=== PATIENT | female | born 1935 | race Caucasian/White ===

== ENCOUNTER 2017-06-26 11:55 | Observation (INO) | payer MEDICARE ==
[2017-06-26] VITALS (7 sets, daily range): BP systolic 152–214; BP diastolic 74–101; PULSE 77–89; RESP 16–18; TEMP 97.3–98.6; O2SAT 97–99
[~2017-06-26] VITALS: Ht 165.1 cm; Wt 77.8 kg
[~2017-06-26 11:55] MED LIST: HYDR-3580 PO; METO50 PO; [UNRECOGNIZED DRUG - OTHER]
--- NOTE | 2017-06-26 12:08 | PD ---
HPI Chief Complaint: right arm weakness Time Seen by Provider: 12:04 Travel History International Travel<30 days: No Contact w/Intl Traveler<30days: No History of Present Illness HPI 81-year-old female patient presents to the ER today, states that she was feeling fine when she went to sleep at 9 PM last night, woke up at 9 AM and noticed that she was having trouble picking up her right arm. She denies any trouble walking, talking, or any other symptoms. She denies any previous episodes of this. Modifying Factors: None Associated Signs & Symptoms: Right arm weakness Risk Factors: None PFSH Past Medical History Depression: Yes Cardiac Catheterization: No Cardiovascular Problems: Yes High Cholesterol: Yes Diabetes: No Diminished Hearing: No Hypertension: Yes Myocardial Infarction: No Past Surgical History Appendectomy: Yes Coronary Artery Bypass Graft: No Tonsillectomy: Yes Social History Alcohol Use: Yes (OCCASIONALLY WINE) Tobacco Use: No Substance Use: No Allergies-Medications (Allergen,Severity, Reaction): Coded Allergies: Sulfa (Sulfonamide Antibiotics) (Unverified Allergy, Severe, Nausea/ Vomiting, 06/26/17) Reported Meds & Prescriptions Reported Meds & Active Scripts Active Lortab 7.5/325 Tab (Hydrocodone-Acetaminophen) 7.5 Mg/325 Mg Tab 1 Tab PO Q4HPRN Reported [[place]] Lopressor 50 Mg Tab (Metoprolol Tartrate) 50 Mg Tab 0 PO DAILY Review of Systems Except as stated in HPI: all other systems reviewed are Neg Physical Exam Narrative GENERAL: Well-developed elderly white female patient currently in mild distress. Awake and oriented 3. SKIN: Focused skin assessment warm/dry. HEAD: Atraumatic. Normocephalic. EYES: Pupils equal and round. No scleral icterus. No injection or drainage. ENT: No nasal bleeding or discharge. Mucous membranes pink and moist. NECK: Trachea midline. No JVD. Supple. CARDIOVASCULAR: Regular rate and rhythm. No murmur appreciated. RESPIRATORY: No accessory muscle use. Clear to auscultation. Breath sounds equal bilaterally. GASTROINTESTINAL: Abdomen soft, non-tender, nondistended. Hepatic and splenic margins not palpable. MUSCULOSKELETAL: No obvious deformities. No clubbing. No cyanosis. No edema. NEUROLOGICAL: Awake and alert. No obvious cranial nerve deficits. There is notable right arm weakness and mild right pronator drift. Normal speech. PSYCHIATRIC: Appropriate mood and affect; insight and judgment normal. Data Data Last Documented VS Vital Signs Date Time Temp Pulse Resp B/P (MAP) Pulse Ox O2 Delivery O2 Flow Rate FiO2 06/26/17 12:00 98.6 85 16 187/88 (121) 97 06/26/17 12:00 Room Air Orders Orders Electrocardiogram (06/26/17 12:04) Prothrombin Time / Inr (Pt) (06/26/17 12:04) Act Partial Throm Time (Ptt) (06/26/17 12:04) Complete Blood Count With Diff (06/26/17 12:04) Comprehensive Metabolic Panel (06/26/17 12:04) Ct Brain W/O Iv Contrast(Rout) (06/26/17 12:04) Chest, Single Ap (06/26/17 12:04) Ecg Monitoring (06/26/17 12:04) Iv Access Insert/Monitor (06/26/17 12:04) Oximetry (06/26/17 12:04) Sodium Chloride 0.9% Flush (Ns Flush) (06/26/17 12:15) Aspirin (Aspirin) (06/26/17 13:15) Ed Discharge Order (06/26/17 13:10) Labs Laboratory Tests Test 06/26/17 12:10 White Blood Count 5.0 TH/MM3 Red Blood Count 4.91 MIL/MM3 Hemoglobin 14.0 GM/DL Hematocrit 42.2 % Mean Corpuscular Volume 85.9 FL Mean Corpuscular Hemoglobin 28.4 PG Mean Corpuscular Hemoglobin Concent 33.1 % Red Cell Distribution Width 12.3 % Platelet Count 156 TH/MM3 Mean Platelet Volume 9.8 FL Neutrophils (%) (Auto) 70.9 % Lymphocytes (%) (Auto) 17.3 % Monocytes (%) (Auto) 6.9 % Eosinophils (%) (Auto) 4.0 % Basophils (%) (Auto) 0.9 % Neutrophils # (Auto) 3.6 TH/MM3 Lymphocytes # (Auto) 0.9 TH/MM3 Monocytes # (Auto) 0.3 TH/MM3 Eosinophils # (Auto) 0.2 TH/MM3 Basophils # (Auto) 0.0 TH/MM3 CBC Comment DIFF FINAL Differential Comment Prothrombin Time 10.2 SEC Prothromb Time International Ratio 1.0 RATIO Activated Partial Thromboplast Time 24.5 SEC Blood Urea Nitrogen 20 MG/DL Creatinine 0.94 MG/DL Random Glucose 129 MG/DL Total Protein 7.4 GM/DL Albumin 3.8 GM/DL Calcium Level 8.8 MG/DL Alkaline Phosphatase 115 U/L Aspartate Amino Transf (AST/SGOT) 23 U/L Alanine Aminotransferase (ALT/SGPT) 36 U/L Total Bilirubin 0.8 MG/DL Sodium Level 141 MEQ/L Potassium Level 3.9 MEQ/L Chloride Level 107 MEQ/L Carbon Dioxide Level 27.8 MEQ/L Anion Gap 6 MEQ/L Estimat Glomerular Filtration Rate 57 ML/MIN MDM Medical Decision Making Medical Screen Exam Complete: Yes Emergency Medical Condition: Yes Medical Record Reviewed: Yes Interpretation(s) EKG shows NSR, no ST elevation or depression, and no arrhythmias. No significant T-wave inversions. Last [address] 06/26/17 1204 Signed Impressions: Service Date/Time: Monday, June 26, 2017 12:30 - CONCLUSION: 1. Aging brain with generalized atrophy and chronic white matter changes. 2. No evidence of acute infarct, hemorrhage, mass or edema. Rusty Mcintyre MD Chest X-Ray 06/26/17 1204 Signed Impressions: Service Date/Time: Monday, June 26, 2017 12:18 - CONCLUSION: No acute intrathoracic disease. Anthony Guallpa MD Laboratory Tests Test 06/26/17 12:10 Neutrophils (%) (Auto) 70.9 % (16.0-70.0) Lymphocytes # (Auto) 0.9 TH/MM3 (1.0-4.8) Blood Urea Nitrogen 20 MG/DL (7-18) Random Glucose 129 MG/DL (74-106) Estimat Glomerular Filtration Rate 57 ML/MIN (>89) Differential Diagnosis Right arm weakness: CVA versus radiculopathy versus ICH versus metabolic issues Narrative Course Initial NIH stroke scale is 1. CAT scan did not show any signs of acute intracranial processes. Her lab work was otherwise unremarkable. She was given an aspirin in the ER. At this point, I would recommend that she be admitted for further treatment. However, after I discussed the findings with the patient and have talked her about the fact that I think she had a stroke, she states that she does not want to stay and does not want to be evaluated for stroke in the hospital. I have talked her regarding the fact that we did not know what is causing the symptoms and if this is a stroke, she could end up having a larger expanding stroke or a more massive stroke or other acute morbidity from it. Patient states understanding and still does not want to stay. She will be leaving against my advice. She is awake, alert, and of sound mind and I have discussed with her the possible implications and risks related to her diagnosis. AMA: The risks of leaving against medical advice without further evaluation treatment were discussed with the patient. These risks include cardiac dysfunction, cardiac dysrhythmia, possible heart attack, possible stroke or . The patient indicated understanding of these risks and appeared to have the capacity to make this decision. Diagnosis Primary Impression: Right arm weakness Additional Impression: Stroke Additional Instructions: You should follow-up as soon as possible with her primary care doctor. You should return for any worsening in symptoms. Disposition: 07 AGAINST MEDICAL ADVICE Condition: Stable Barry Pandey MD Jun 26, 2017 12:08
[2017-06-26] MEDS ORDERED: SODIUM CHLORIDE 0.9% FLUSH 10 ML FLUSH IVF PRN (12:15)
[2017-06-26 12:24] LABS: AUTOMATED NEUTROPHIL # 3.6 TH/MM3 (1.8-7.7); BASOPHIL % 0.9 % (0.0-2.0); EOSINOPHIL # 0.2 TH/MM3 (0-0.4); HEMATOCRIT 42.2 % (35.0-46.0); LYMPH % 17.3 % (9.0-44.0); LYMPHOCYTE # 0.9 TH/MM3 (1.0-4.8); MEAN CELL VOLUME 85.9 FL (80.0-100.0); MEAN CORPUSCULAR HEMOGLOBIN 28.4 PG (27.0-34.0); MEAN CORPUSCULAR HGB CONC 33.1 % (32.0-36.0); MEAN PLATELET VOLUME 9.8 FL (7.0-11.0); MONO % 6.9 % (0.0-8.0); MONOCYTE # 0.3 TH/MM3 (0-0.9); NEUT % 70.9 % (16.0-70.0); PLATELET COUNT 156 TH/MM3 (150-450); RED BLOOD COUNT 4.91 MIL/MM3 (4.00-5.30); RED CELL DISTRIBUTION WIDTH 12.3 % (11.6-17.2)
--- NOTE | 2017-06-26 12:27 | RADRPT ---
EXAM DATE/TIME: 06/26/2017 12:18 [facility] COMPARISON: No previous studies available for comparison. INDICATIONS : Stroke symptoms. Inability to use right arm. MEDICAL HISTORY : Hypercholesterolemia. Hypertension SURGICAL HISTORY : Appendectomy. Splenectomy. Right shoulder. ENCOUNTER: Initial ACUITY: 1 day PAIN SCORE: 0/10 LOCATION: chest FINDINGS: A single view of the chest demonstrates the lungs to be symmetrically aerated without evidence of mas s, infiltrate or effusion. The cardiomediastinal contours are unremarkable. Osseous structures are intact. CONCLUSION: No acute intrathoracic disease. Anthony Guallpa MD on June 26, 2017 at 12:26 Board Certified Radiologist. This report was verified electronically.
[2017-06-26 12:34] LABS: CHLORIDE 107 MEQ/L (98-107); SODIUM (NA) 141 MEQ/L (136-145)
[2017-06-26 12:35] LABS: PROTHROMBIN TIME - PATIENT 10.2 SEC (9.8-11.6)
[2017-06-26 12:37] LABS: ALBUMIN 3.8 GM/DL (3.4-5.0); BICARBONATE 27.8 MEQ/L (21.0-32.0); CALCIUM 8.8 MG/DL (8.5-10.1); GLUCOSE,RANDOM 129 MG/DL (74-106)
[2017-06-26 12:38] LABS: BLOOD UREA NITROGEN 20 MG/DL (7-18)
[2017-06-26 12:40] LABS: ALT (GPT) 36 U/L (10-53)
[2017-06-26 12:41] LABS: AST (GOT) 23 U/L (15-37); CREATININE 0.94 MG/DL (0.50-1.00); GLOMERULAR FILTRATION RATE 57 ML/MIN (>89)
[2017-06-26 12:42] LABS: TOTAL BILIRUBIN ADULT 0.8 MG/DL (0.2-1.0); TOTAL PROTEIN 7.4 GM/DL (6.4-8.2)
[2017-06-26 12:43] LABS: ALKALINE PHOSPHATASE 115 U/L (45-117)
--- NOTE | 2017-06-26 12:50 | RADRPT ---
EXAM DATE/TIME: 06/26/2017 12:30 [facility] COMPARISON: No previous studies available for comparison. INDICATIONS : Right upper extremity weakness. RADIATION DOSE: 55.55 CTDIvol (mGy) MEDICAL HISTORY : Hypertension. SURGICAL HISTORY : Appendectomy. Hysterectomy. ENCOUNTER: Initial ACUITY: 1 day PAIN SCALE: 0/10 LOCATION: cranial TECHNIQUE: Multiple contiguous axial images were obtained of the head. Using automated exposure control and adj ustment of the mA and/or kV according to patient size, radiation dose was kept as low as reasonably a chievable to obtain optimal diagnostic quality images. DICOM format image data is available electro nically for review and comparison. FINDINGS: There is moderate central and cortical atrophy with dilatation of ventricular and sulcal spaces. The re is no parenchymal hemorrhage, acute infarction or mass lesion identified. Mild hypodensity is seen throughout the cerebral white matter. There are no extra-axial fluid collections appreciated. The p osterior fossa is unremarkable with midline fourth ventricle. The portion of the orbits and paranasa l sinuses visualized are unremarkable. CONCLUSION: 1. Aging brain with generalized atrophy and chronic white matter changes. 2. No evidence of acute infarct, hemorrhage, mass or edema. Rusty Mcintyre MD on June 26, 2017 at 12:45 Board Certified Radiologist. This report was verified electronically.
[2017-06-26] MEDS ORDERED: ASPIRIN 325 MG TAB PO ONE (13:15)
[2017-06-26] MEDS ORDERED: SODIUM CHLORIDE 0.9% FLUSH 10 ML FLUSH IV FLUSH PRN (14:00)
[2017-06-26] MEDS ORDERED: ENALAPRILAT 1.25 MG/ML VIAL IV PUSH PRN (14:00)
[2017-06-26] MEDS ORDERED: GLUCAGON 1 MG/ML VIAL OTHER PRN (14:00)
[2017-06-26] MEDS ORDERED: DEXTROSE 50% IN WATER 50 ML VIAL(D50) IV PUSH PRN (14:00)
--- NOTE | 2017-06-26 16:05 | RADRPT ---
EXAM DATE/TIME: 06/26/2017 14:06 [facility] COMPARISON: No previous studies available for comparison. INDICATIONS : Syncope. MEDICAL HISTORY : Hypercholesterolemia. Hypertension. Myasthenia gravis. SURGICAL HISTORY : Tonsillectomy. Appendectomy. Right shoulder surgery. ENCOUNTER: Initial ACUITY: 1 day PAIN SCORE: 110 LOCATION: Bilateral neck PEAK SYSTOLIC VELOCITIES (cm/sec): ICA/CCA RATIO: Right: 0.9 Left: 1.5 ICA: Right: 73 Left: 71 CCA: Right: 84 Left: 48 ECA: Right: 69 Left: 50 VERTEBRAL: Right: 47 antegrade Left: 41 antegrade Elevated flow velocities and ICA/CCA ratios have been found to correlate with increased degrees of vessel stenosis, calculated as percentage of diameter relative to a normal segment of distal ICA/CCA FINDINGS: RIGHT CAROTID: No significant stenosis is visualized. The waveforms are within normal limits. LEFT CAROTID: No significant stenosis is visualized. The waveforms are within normal limits. VERTEBRAL ARTERIES: Antegrade flow is seen in both vertebral arteries. MISCELLANEOUS: None. CONCLUSION: No evidence of significant atherosclerotic vascular disease or hemodynamically signif icant stenosis. Antegrade flow in both vertebral arteries. Rusty Mcintyre MD on June 26, 2017 at 16:02 Board Certified Radiologist. This report was verified electronically.
--- NOTE | 2017-06-26 16:34 | HHI.HP ---
HPI Service [facility] Primary Care Physician Asher Rivera MD Admission Diagnosis right arm weakness/CVA Chief Complaint: RUE weakness, poor fine motor control right hand Travel History International Travel<30 Days: No Contact w/Intl Traveler <30 Da: No Traveled to Known Affected Are: No History of Present Illness 81-year-old right-hand dominant female patient with history of myasthenia gravis and mild dementia presents to the ER today, states that she was feeling her usual state of health when she went to sleep at 9 PM last night. She awoke at around 9 AM and noticed that she was having trouble picking up her right arm. She denies any trouble walking, talking, or any other symptoms. She denies any previous episodes of this. He also noted that she had trouble with fine motor skills in the right hand. Her who is with her reports that she's been dropping things with her right hand over the last week. Her daughter who came into the room as well during exam reported that her mother been complaining of some right arm pain intermittently over the last week or so. Has had no trauma. She says she does sleep on her left side and occasionally will awaken with some weakness in tingling in her right hand but that generally resolved. Today's symptoms did not resolve and she actually had no tingling this morning but this had weakness in the right hand and some pain in the right forearm. She denies having any new pillows or other bedding items. No head trauma. Vision changes or recurrent headache. She does have some trouble with choking at times due to her myasthenia but has been started on a Rivastigmine patch over the last 3-4 weeks. This is her only new medication. He seems to be tolerating the patch overall well and it has certainly helped her choking episodes. She denies any history of palpitations, chest pain or any arrhythmia. It is noted that she generally takes a low-dose 81 mg aspirin each day, but has not done so over the last 7-10 days and she has been out of the medication. She denies any previous neuro deficits outside her myasthenia and mild dementia, however outpatient chart reviews revealed questionable CVA history although I cannot find any concrete evidence of such. She is followed by outpatient neurology, Dr. Hartman regarding her myasthenia and dementia. She is feeling better now. She has noted that she can manipulate objects better with her right hand and her strength has returned to baseline in the right upper extremity per her report. Review of Systems ROS Limitations: Poor Historian Constitutional: DENIES: Diaphoretic episodes, Fatigue, Fever, Weight gain, Weight loss, Chills, Dizziness, Change in appetite, Night Sweats Eyes: DENIES: Blurred vision, Diplopia, Eye inflammation, Eye pain, Vision loss , Photosensitivity, Double Vision Ears, nose, mouth, throat: DENIES: Tinnitus, Hearing loss, Nasal discharge, Oral lesions, Throat pain, Hoarseness, Ear Pain, Running Nose, Epistaxis, Sinus Pain, Toothache, Odynophagia Respiratory: COMPLAINS OF: Cough, DENIES: Apneas, Snoring, Wheezing, Hemoptysis , Sputum production, Shortness of breath Cardiovascular: DENIES: Chest pain, Palpitations, Syncope, Dyspnea on Exertion , PND, Lower Extremity Edema, Orthopnea, Claudication Gastrointestinal: COMPLAINS OF: GERD, Difficulty Swallowing, DENIES: Abdominal pain, Black stools, Bloody stools, BRB per rectum, Constipation, Diarrhea, Nausea, Reflux, Vomiting, Anorexia, See HPI Musculoskeletal: COMPLAINS OF: Joint pain, Stiffness, Neck pain Integumentary: DENIES: Abnormal pigmentation, Pruritus, Rash, Nail changes, Breast masses, Breast skin changes, Nipple discharge Hematologic/lymphatic: DENIES: Bruising, Lymphadenopathy Immunologic/allergic: DENIES: Eczema, Urticaria Neurologic: COMPLAINS OF: Abnormal gait, Localized weakness, Poor Balance, DENIES: Headache, Paresthesias, Seizures, Speech Problems, Tremor Psychiatric: COMPLAINS OF: Anxiety, Confusion, DENIES: Mood changes, Depression , Hallucinations, Agitation, Suicidal Ideation, Homicidal Ideation, Delusions, History of Bipolar, History of Schizophrenia Past Family Social History Past Medical History Alzheimer's Dementia, mild Depression GERD HTN Hyperlipidemia ? prior CVA per outpt record review, but no concrete evidence of such. Myasthenia Gravis Past Surgical History Shoulder surgery Varicose vein ablation Colonoscopy 03/2013 - negative except diverticulosis Allergies: Coded Allergies: Sulfa (Sulfonamide Antibiotics) (Unverified Allergy, Severe, Nausea/ Vomiting, 06/26/17) Family History nc Social History Never a smoker Rare alcohol use for over 60 years Originally from [place], moved to the area 50 years ago Retired legal administrative secretary Physical Exam Vital Signs Vital Signs Date Time Temp Pulse Resp B/P (MAP) Pulse Ox O2 Delivery O2 Flow Rate FiO2 06/26/17 15:05 88 18 152/74 (100) 96 06/26/17 14:00 86 16 158/87 (110) 99 Room Air 06/26/17 12:00 98.6 85 16 187/88 (121) 97 06/26/17 12:00 Room Air 06/26/17 12:00 16 97 Room Air Physical Exam GENERAL: This is a well-nourished, well-developed patient, in no apparent distress. Alert with mild confusion which is baseline per family. Jovial. SKIN: No rashes, ecchymoses or lesions. Cool and dry. HEAD: Atraumatic. Normocephalic. No temporal or scalp tenderness. EYES: Pupils equal round and reactive. Extraocular motions intact. No scleral icterus. No injection or drainage. ENT: Nose without bleeding, purulent drainage or septal hematoma. Airway patent. NECK: Trachea midline. No JVD or lymphadenopathy. Supple, nontender, no meningeal signs. CARDIOVASCULAR: Regular rate and rhythm without murmurs, gallops, or rubs. RESPIRATORY: Clear to auscultation. Breath sounds equal bilaterally. No wheezes , rales, or rhonchi. GASTROINTESTINAL: Abdomen soft, non-tender, nondistended. No hepato-splenomegaly , or palpable masses. No guarding. I'll sounds normal. MUSCULOSKELETAL: Extremities without clubbing, cyanosis, or edema. 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 No calf tenderness. NEUROLOGICAL: Awake and alert. Cranial nerves II through XII intact. Motor and sensory grossly within normal limits. Five out of 5 muscle strength in all major muscle groups. Mild dysgraphia with right hand but no micrographia. No tremor. Normal speech. Laboratory Laboratory Tests Test 06/26/17 12:10 White Blood Count 5.0 Red Blood Count 4.91 Hemoglobin 14.0 Hematocrit 42.2 Mean Corpuscular Volume 85.9 Mean Corpuscular Hemoglobin 28.4 Mean Corpuscular Hemoglobin Concent 33.1 Red Cell Distribution Width 12.3 Platelet Count 156 Mean Platelet Volume 9.8 Neutrophils (%) (Auto) 70.9 Lymphocytes (%) (Auto) 17.3 Monocytes (%) (Auto) 6.9 Eosinophils (%) (Auto) 4.0 Basophils (%) (Auto) 0.9 Neutrophils # (Auto) 3.6 Lymphocytes # (Auto) 0.9 Monocytes # (Auto) 0.3 Eosinophils # (Auto) 0.2 Basophils # (Auto) 0.0 CBC Comment DIFF FINAL Differential Comment Prothrombin Time 10.2 Prothromb Time International Ratio 1.0 Activated Partial Thromboplast Time 24.5 Blood Urea Nitrogen 20 Creatinine 0.94 Random Glucose 129 Total Protein 7.4 Albumin 3.8 Calcium Level 8.8 Alkaline Phosphatase 115 Aspartate Amino Transf (AST/SGOT) 23 Alanine Aminotransferase (ALT/SGPT) 36 Total Bilirubin 0.8 Sodium Level 141 Potassium Level 3.9 Chloride Level 107 Carbon Dioxide Level 27.8 Anion Gap 6 Estimat Glomerular Filtration Rate 57 Result Diagram: 06/26/17 1210 06/26/17 1210 Imaging Last [address] 06/26/17 1204 Signed Impressions: Service Date/Time: Monday, June 26, 2017 12:30 - CONCLUSION: 1. Aging brain with generalized atrophy and chronic white matter changes. 2. No evidence of acute infarct, hemorrhage, mass or edema. Rusty Mcintyre MD Chest X-Ray 06/26/17 1204 Signed Impressions: Service Date/Time: Monday, June 26, 2017 12:18 - CONCLUSION: No acute intrathoracic disease. Anthony Guallpa MD Carotid Artery Ultrasound 06/26/17 0000 Signed Impressions: Service Date/Time: Monday, June 26, 2017 14:06 - CONCLUSION: No evidence of significant atherosclerotic vascular disease or hemodynamically significant stenosis. Antegrade flow in both vertebral arteries. Rusty Mcintyre MD Caprini VTE Risk Assessment Caprini VTE Risk Assessment: Mod/High Risk (score >= 2) Caprini Risk Assessment Model Point Value = 1 Point Value = 2 Point Value = 3 Point Value = 5 Age 41-60 Minor surgery BMI > 25 kg/m2 Swollen legs Varicose veins or History of unexplained or recurrent spontaneous Oral contraceptives or hormone replacement Sepsis (< 1 month) Serious lung disease, including pneumonia (< 1 month) Abnormal pulmonary function Acute myocardial infarction Congestive heart failure (< 1 month) History of inflammatory bowel disease Medical patient at bed rest Age 61-74 Arthroscopic surgery Major open surgery (> 45 min) Laparoscopic surgery (> 45 min) Malignancy Confined to bed (> 72 hours) Immobilizing plaster cast Central venous access Age >= 75 History of VTE Family history of VTE Factor V Leiden Prothrombin [id number] Lupus anticoagulant Anticardiolipin antibodies Elevated serum homocysteine Heparin-induced thrombocytopenia Other congenital or acquired thrombophilia Stroke (< 1 month) Elective arthroplasty Hip, pelvis, or leg fracture Acute spinal cord injury (< 1 month) Prophylaxis Regimen Total Risk Factor Score Risk Level Prophylaxis Regimen 0-1 Low Early ambulation 2 Moderate Order ONE of the following: *Sequential Compression Device (SCD) *Heparin 5000 units SQ BID 3-4 Higher Order ONE of the following medications: *Heparin 5000 units SQ TID *Enoxaparin/Lovenox 40 mg SQ daily (WT < 150 kg, CrCl > 30 mL/min) *Enoxaparin/Lovenox 30 mg SQ daily (WT < 150 kg, CrCl > 10-29 mL/min) *Enoxaparin/Lovenox 30 mg SQ BID (WT < 150 kg, CrCl > 30 mL/min) AND/OR *Sequential Compression Device (SCD) 5 or more Highest Order ONE of the following medications: *Heparin 5000 units SQ TID (Preferred with Epidurals) *Enoxaparin/Lovenox 40 mg SQ daily (WT < 150 kg, CrCl > 30 mL/min) *Enoxaparin/Lovenox 30 mg SQ daily (WT < 150 kg, CrCl > 10-29 mL/min) *Enoxaparin/Lovenox 30 mg SQ BID (WT < 150 kg, CrCl > 30 mL/min) AND *Sequential Compression Device (SCD) Assessment and Plan Problem List: (1) Right arm weakness ICD Codes: R29.898 - Other symptoms and signs involving the musculoskeletal system Status: Acute Plan: ? CVA with possible prior CVA. Patient was not taking her aspirin over the last 7-[address] scan of the brain with no acute findings. Carotid ultrasound with no significant stenosis. ASA, echo, MRI, MRA, Holter, neuro checks (2) Myasthenia gravis ICD Codes: G70.00 - Myasthenia gravis without (acute) exacerbation Status: Chronic Plan: continue rx. Sees neuro as outpt Seems to be tolerating her Rivastigmine patch relatively well. (3) Hypertension ICD Codes: I10 - Essential (primary) hypertension Status: Chronic Plan: will allow permissive HTN over first 36 hrs prn meds (4) Hyperlipemia ICD Codes: E78.5 - Hyperlipidemia, unspecified Status: Chronic Plan: continue Statin, Check lipids (5) GERD (gastroesophageal reflux disease) ICD Codes: K21.9 - Gastro-esophageal reflux disease without esophagitis Status: Chronic Plan: continue RX Code Status full Discussed Condition With Patient, her , her daughter and ER provider Problem Qualifiers (1) Hypertension: Qualified Codes: I10 - Essential (primary) hypertension Jose Angel Arroyo MD PhD Jun 26, 2017 16:34
[2017-06-26 17:06] LABS: HEMOGLOBIN A1C 5.7 % (4.3-6.0)
[2017-06-26] MEDS: INSULIN ASPART SUPPLEMENTAL SCALE SQ SCH ×2 (17:30→20:45)
[2017-06-26] MEDS ORDERED: TEMAZEPAM 15 MG CAP PO PRN (18:45)
[2017-06-26] MEDS ORDERED: ALPRAZolam 0.25 MG TAB PO PRN (18:45)
[2017-06-26] MEDS ORDERED: ESCITALOPRAM OXALATE 20 MG TAB PO ONE (20:00)
[2017-06-26] MEDS: MEMANTINE HCL 10 MG TAB PO SCH (20:45)
[2017-06-26] MEDS: SODIUM CHLORIDE 0.9% FLUSH 10 ML FLUSH IV FLUSH SCH (20:45)
[2017-06-26 22:58] LABS: FOLATE 14.9 NG/ML (3.1-17.5)
[2017-06-27] VITALS: BP 153/79; PULSE 77; RESP 16; TEMP 98.4; O2SAT 95
[2017-06-27 04:00] VITALS: BP 172/93; PULSE 75; RESP 16; TEMP 98.3; O2SAT 95
--- NOTE | 2017-06-27 07:38 | HHI.PR ---
Subjective Remarks Slept relatively well. Again has some weakness in right arm this morning similar to yesterday morning. I actually observe the patient's sleeping before waking her and she sleeps very heavily on her right side with her right arm tucked under her body. She reports that she typically sleeps his weight and does have some numbness in right arm at times in the morning after waking which usually resolves. Objective Vitals Vital Signs Date Time Temp Pulse Resp B/P (MAP) Pulse Ox O2 Delivery O2 Flow Rate FiO2 06/27/17 04:00 98.3 75 16 172/93 (119) 95 06/27/17 00:00 98.4 77 16 153/79 (103) 95 06/26/17 20:00 89 06/26/17 20:00 97.9 77 18 175/75 (108) 97 Manual Cuff/Auscultation 06/26/17 18:00 97.3 78 18 214/97 (136) 97 06/26/17 17:35 169/101 (123) 06/26/17 16:42 80 06/26/17 15:05 88 18 152/74 (100) 96 06/26/17 14:00 86 16 158/87 (110) 99 Room Air 06/26/17 12:00 98.6 85 16 187/88 (121) 97 06/26/17 12:00 Room Air 06/26/17 12:00 16 97 Room Air GENERAL: Sleeping soundly, arouses to voice, alert but a bit confused. Speech is normal SKIN: Warm and dry. HEAD: Normocephalic. No facial droop or asymmetry. . EYES: No scleral icterus. No injection or drainage. NECK: Supple, trachea midline. No JVD or lymphadenopathy. CARDIOVASCULAR: Regular rate and rhythm without murmurs, gallops, or rubs. RESPIRATORY: Breath sounds equal bilaterally. No accessory muscle use. GASTROINTESTINAL: Abdomen soft, non-tender, nondistended. Bowel sounds normal. MUSCULOSKELETAL: No cyanosis, or edema. 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 BACK: No CVA tenderness. Result Diagram: 06/26/17 1210 06/26/17 1210 Imaging Last [address] 06/26/17 1204 Signed Impressions: Service Date/Time: Monday, June 26, 2017 12:30 - CONCLUSION: 1. Aging brain with generalized atrophy and chronic white matter changes. 2. No evidence of acute infarct, hemorrhage, mass or edema. Rusty Mcintyre MD Chest X-Ray 06/26/17 1204 Signed Impressions: Service Date/Time: Monday, June 26, 2017 12:18 - CONCLUSION: No acute intrathoracic disease. Anthony Guallpa MD Carotid Artery Ultrasound 06/26/17 0000 Signed Impressions: Service Date/Time: Monday, June 26, 2017 14:06 - CONCLUSION: No evidence of significant atherosclerotic vascular disease or hemodynamically significant stenosis. Antegrade flow in both vertebral arteries. Rusty Mcintyre MD Urinary Catheter: No Vascular Central Line Catheter: No A/P Problem List: (1) Right arm weakness ICD Codes: R29.898 - Other symptoms and signs involving the musculoskeletal system Status: Acute Plan: ? CVA with possible prior CVA. Patient was not taking her aspirin over the last 7-[address] scan of the brain with no acute findings. Carotid ultrasound with no significant stenosis. ASA, echo, MRI, MRA, Holter, neuro checks Some of her right upper extremity weakness may be associated with neural compression given her sleeping posture. I have ordered MRI of C-spine and counseled her to avoid compressive forces to the right neck, upper extremity and brachial plexus area. (2) Myasthenia gravis ICD Codes: G70.00 - Myasthenia gravis without (acute) exacerbation Status: Chronic Plan: continue rx. Sees neuro as outpt Seems to be tolerating her Rivastigmine patch relatively well. (3) Hypertension ICD Codes: I10 - Essential (primary) hypertension Status: Chronic Plan: will allow permissive HTN over first 36 hrs prn meds (4) Hyperlipemia ICD Codes: E78.5 - Hyperlipidemia, unspecified Status: Chronic Plan: continue Statin, Check lipids (5) GERD (gastroesophageal reflux disease) ICD Codes: K21.9 - Gastro-esophageal reflux disease without esophagitis Status: Chronic Plan: continue RX Discharge Planning Plan discharge home today. Patient is somewhat anxious to go home. She was not even sure she did stay for the MRIs that are ordered for today. I have counseled her on the importance of having these tests done. Hopefully she will stay. Problem Qualifiers (1) Hypertension: Qualified Codes: I10 - Essential (primary) hypertension Jose Angel Arroyo MD PhD Jun 27, 2017 07:38
[2017-06-27 07:50] VITALS: BP 139/90; PULSE 87; RESP 20; TEMP 96.2; O2SAT 94
[2017-06-27 08:00] VITALS: PULSE 89
[2017-06-27] MEDS: INSULIN ASPART SUPPLEMENTAL SCALE SQ SCH ×2 (08:00→12:00)
[2017-06-27] MEDS ORDERED: PANTOPRAZOLE SOD 40 MG DELAYED RELEASE TAB PO SCH (09:00)
[2017-06-27] MEDS ORDERED: ATORVASTATIN 40 MG TAB PO SCH (09:00)
[2017-06-27] MEDS ORDERED: RIVASTIGMINE 4.6 MG/24 HOUR PATCH T-DERMAL SCH (09:00)
[2017-06-27] MEDS ORDERED: ASPIRIN 81 MG CHEW TAB PO SCH (09:00)
[2017-06-27 09:32] LABS: CHOLESTEROL/ HDL RATIO 2.13 RATIO; HDL CHOLESTEROL 77.6 MG/DL (40.0-60.0)
[2017-06-27] MEDS ORDERED: INFLUENZA VIRUS VACCINE (QUADRIVALENT) 0.5 ML SYR IM ONE (10:00)
[2017-06-27] MEDS ORDERED: PNEUMOCOCCAL POLYVALENT INJ 25 MCG/0.5 ML SYR IM ONE (10:00)
--- NOTE | 2017-06-27 10:10 | ECHRPT ---
Indication: neuro deficit CONCLUSIONS The left ventricular systolic function is normal with an estimated ejection fraction in the range of 55-60%. Doppler parameters are consistent with impaired left ventricular relaxtion (grade 1 diastolic dysfun ction). Trace mitral valve regurgitation. Trace aortic valve regurgitation. There is trace tricuspid valve regurgitation. BP: / HR: Rhythm: MEASUREMENTS (Male / Female) Normal Values Technical Quality:Technically difficult study 2D ECHO LV Diastolic Diameter PLAX 4.0 cm 4.2 - 5.9 / 3.9 - 5.3 cm LV Systolic Diameter PLAX 3.2 cm IVS Diastolic Thickness 1.7 cm 0.6 - 1.0 / 0.6 - 0.9 cm LVPW Diastolic Thickness 1.1 cm 0.6 - 1.0 / 0.6 - 0.9 cm LV Relative Wall Thickness 0.7 RV Internal Dim ED PLAX 3.5 cm M-MODE Aortic Root Diameter MM 3.0 cm LA Systolic Diameter MM 3.1 cm LA Ao Ratio MM 1.0 AV Cusp Separation MM 2.1 cm DOPPLER Mitral E Point Velocity 63.7 cm/s Mitral A Point Velocity 91.8 cm/s Mitral E to A Ratio 0.7 LV E' Lateral Velocity 9.4 cm/s Mitral E to LV E' Lateral Ratio 6.8 LV E' Septal Velocity 12.4 cm/s Mitral E to LV E' Septal Ratio 5.1 TR Peak Velocity 267.0 cm/s TR Peak Gradient 28.5 mmHg Right Atrial Pressure 10.0 mmHg Pulmonary Artery Systolic Pressu 38.5 mmHg Right Ventricular Systolic Press 38.5 mmHg FINDINGS LEFT VENTRICLE Normal left ventricular size. There is assymetric septal hypertrophy. The left ventricular systolic function is normal with an estimated ejection fraction in the range of 55-60%. No regional wall motion abnormalities are present. Doppler parameters are consistent with impaired left ventricular relaxtion (grade 1 diastolic dysfun ction). RIGHT VENTRICLE Normal right ventricular size and systolic function. LEFT ATRIUM The left atrial size is normal. RIGHT ATRIUM The right atrial size is normal. ATRIAL SEPTUM Normal atrial septal thickness. AORTA The aortic root and proximal ascending aorta are normal in size on limited imaging. MITRAL VALVE Structurally normal mitral valve. Trace mitral valve regurgitation. No mitral valve stenosis. Mild mitral annular calcification. AORTIC VALVE Trileaflet aortic valve. Trace aortic valve regurgitation. No aortic valve stenosis. TRICUSPID VALVE Structurally normal tricuspid valve. There is trace tricuspid valve regurgitation. The estimated pulmonary arterial pressure is 38.5 mmHg. PULMONARY VALVE The pulmonary valve is not well visualized. VESSELS The inferior vena cava is normal in size. PERICARDIUM No pericardial effusion. Nils Rodriguez DO (Electronically Signed) Final Date:27 June 2017 10:08
--- NOTE | 2017-06-27 10:19 | RADRPT ---
EXAM DATE/TIME: 06/27/2017 09:45 [facility] COMPARISON: No previous studies available for comparison. INDICATIONS : CVA. Right sided weakness for two days. MEDICAL HISTORY : Hypertension. Myasthenia gravis. SURGICAL HISTORY : Appendectomy. Tonsillectomy. Right shoulder. ENCOUNTER: Initial ACUITY: 2 day PAIN SCORE: 0/10 LOCATION: Head. Please note a normal MRA of the brain does not entirely exclude the possibility of a small aneurysm, nor the possibility of distal intracranial vessel disease. TECHNIQUE: 3D time of flight MRA was performed. Source images, multiplanar STS MIP, and 3D volume MIP reconstru ctions were reviewed. FINDINGS: There is excellent visualization of the major intracranial arteries out to the second-order branch ve ssels. There is no evidence for aneurysm, vessel truncation or stenosis, and no evidence for vascula r malformation. CONCLUSION: Normal examination. No evidence of luminal irregularity, significant stenosis, aneurysm or vascular displacement. Rusty Mcintyre MD on June 27, 2017 at 10:16 Board Certified Radiologist. This report was verified electronically.
--- NOTE | 2017-06-27 10:22 | RADRPT ---
EXAM DATE/TIME: 06/27/2017 09:45 [facility] COMPARISON: No previous studies available for comparison. INDICATIONS : CVA. Right sided weakness for two days. MEDICAL HISTORY : Hypertension. Myasthenia gravis. SURGICAL HISTORY : Appendectomy. Tonsillectomy. Right shoulder. ENCOUNTER: Initial ACUITY: 2 day PAIN SCORE: 0/10 LOCATION: Head. TECHNIQUE: Multiplanar, multisequence MRI of the brain was performed without contrast. FINDINGS: A 1 cm focus of restricted diffusion is identified in the deep white matter of the left cerebral patricia sphere within the frontoparietal region. There are no cortically based foci are straightened effusion. Advanced cerebral white matter disease with periventricular and deep white matter hyperintensity is n oted throughout both cerebral hemispheres. There is no somatic, edema or hemorrhage. CSF spaces especially the lateral ventricles are enlarged. CONCLUSION: 1. Acute nonhemorrhagic deep white matter infarct in the left thompson radiata. 2. Advanced cerebral white matter disease characteristic of chronic microvascular ischemic changes. 3. No evidence of focal cortical infarct, acute hemorrhage, mass effect or edema. 4. Enlarged CSF spaces consistent with an aging brain and atrophy. Rusty Mcintyre MD on June 27, 2017 at 10:17 Board Certified Radiologist. This report was verified electronically.
[2017-06-27 11:25] VITALS: BP 180/80; PULSE 85; RESP 20; TEMP 96.5; O2SAT 91
--- NOTE | 2017-06-27 12:47 | RADRPT ---
EXAM DATE/TIME: 06/27/2017 09:45 [facility] COMPARISON: No previous studies available for comparison. INDICATIONS : Weakness. Right arm weakness for two days. MEDICAL HISTORY : Hypertension. Myasthenia gravis. SURGICAL HISTORY : Appendectomy. Tonsillectomy. Right shoulder. ENCOUNTER: Initial ACUITY: 2 day PAIN SCORE: 0/10 LOCATION: Neck. TECHNIQUE: Multiplanar, multisequence MRI examination of the cervical spine was performed. FINDINGS: Alignment: Craniocervical and cervical vertebral body alignment are well preserved without significant listhesis . Osseous structures and facet joints: Vertebral bodies and posterior elements are intact. There is no evidence of acute fracture, bone rufus ow edema or destructive changes. Moderate to severe arthropathy is noted. The right C3-4 facet joint is fused. Significant joint space narrowing is noted on the left. Hypertrophic changes with joint space narrowing and subchondral sclerosis are present throughout the facet joints. Intervertebral disc spaces: Degenerative disc disease ranging from mild to moderately severe is noted. C2-3: Disc space narrowing without evidence of focal herniation, foraminal stenosis or spinal stenosis. C3-4: Disc space narrowing with marginal spurring. There is mild to moderate bilateral foraminal stenosis. There is no evidence of disc herniation or central spinal stenosis. C4-5: Mild degenerative disc disease with disc space narrowing but no evidence of disc herniation, signific ant foraminal stenosis or central spinal stenosis. C5-6: Moderate to severe degenerative disc disease. There is broad-based disc osteophyte complex. Severe fo raminal stenosis is identified on the right. There is no evidence of epidural disc herniation or sign ificant left foraminal stenosis. C6-7: Mild degenerative disc disease otherwise unremarkable. There is no evidence of disc herniation, ishan inal encroachment or spinal stenosis. Neurologic structures: Significant compression of the right C6 nerve root due to foraminal encroachment is suspected. CONCLUSION: 1. Moderate to severe degenerative disc disease at C5-6 with high-grade right foraminal stenosis caus ing nerve root compression. 2. No evidence of disc herniation. 3. No evidence of acute bony abnormality or spinal cord abnormality. Rusty Mcintyre MD on June 27, 2017 at 12:33 Board Certified Radiologist. This report was verified electronically.
--- NOTE | 2017-06-27 14:36 | HHI.PR ---
Addendum to Inpatient Note Addendum Reason: Additional Documentation Additional Information Reviewed MRI, MRA and echo ultrasound and telemetry. Discussed this with the patient and her . Also discussed with patient's neurologist, Dr. Hartman. Patient has been relatively stable. She did have a fall this morning but her right lower extremity strength is quite strong on exam this afternoon. reports she actually had a fall at home about 3 weeks ago as well. Right upper extremity strength is about 4-1/2 out of 5. Still has some dexterity issues and right upper extremity. We'll continue on the aspirin. Discharge her home today with close follow-up as an outpatient and fall precautions. Provide walker as well. I discussed this plan of care with patient and her . Jose Angel Arroyo MD PhD Jun 27, 2017 14:36
[2017-06-27] MEDS ORDERED: ASPI81 PO (14:41)
[2017-06-27] MEDS ORDERED: RIVA4.6T T-DERMAL (14:41)
[2017-06-27] MEDS ORDERED: PANT40TA3 PO (14:41)
[2017-06-27] MEDS ORDERED: WALKER/ADULT/FO1 MIS (14:41)
[2017-06-27] MEDS ORDERED: ATOR40TA16 PO (14:41)
[2017-06-27] MEDS ORDERED: NAME10TA PO (14:41)
--- NOTE | 2017-06-27 14:43 | HHI.FF ---
Face to Face Verification Diagnosis: (1) CVA (cerebral vascular accident) (2) Myasthenia gravis (3) Right arm weakness Physical Therapy Order: Evaluate and Treat, Improve ambulation, Strength and gait training Occupational Therapy Order: Evaluate and Treat, Improve ADL, Fine motor coordination Home Health Nursing Order: Medical education I have seen patient Eileen Weldon on 06/27/17. My clinical findings support the need for the requested home health care services because: Ltd mobility - disease progression Impaired cognition/judgement High risk of falls I certify that my clinical findings support that this patient is homebound because: Impaired cognitive ability/safety Unsteady gait/balance Jose Angel Arroyo MD PhD Jun 27, 2017 14:43
[2017-06-27] MEDS: SODIUM CHLORIDE 0.9% FLUSH 10 ML FLUSH IV FLUSH SCH (14:45)
[2017-06-27] MEDS: MEMANTINE HCL 10 MG TAB PO SCH (14:47)
[2017-06-27 16:00] VITALS: BP 142/94; PULSE 104; RESP 18; TEMP 97.2; O2SAT 94
--- NOTE | 2017-06-27 23:31 | EKG ---
Date Performed: 06/26/2017 Time Performed: 12:13:48 PTAGE: 81 years EKG: Sinus rhythm MODERATE INTRAVENTRICULAR CONDUCTION DELAY BORDERLINE ECG PREVIOUS TRACING : 04/04/2009 21.26 Compared to prior tracing no significant change DOCTOR: Jaime Avina Interpretating Date/Time 06/27/2017 23:30:36
[2017-06-28 16:28] LABS: ANA SCREEN POS (NEG)
[2017-07-03 16:44] LABS: ANA PATTERN DIFFUSE
== END 2017-06-27 16:44 | disposition home or self-care (01) ==
LOC: PHED 11:55 → PHEDA 13:51 → PH3A 15:10 → PH3B 06-27 11:54
PROVIDERS: ADMIT Family Medicine; ATTEND Family Medicine
DX: R53.1 Weakness (principal); R29.898 Other symptoms and signs involving the musculoskeletal system; G70.00 Myasthenia gravis without (acute) exacerbation; I10 Essential (primary) hypertension; K21.9 Gastro-esophageal reflux disease without esophagitis; E78.5 Hyperlipidemia, unspecified; G30.8 Other Alzheimer's disease; F02.80 Dementia in other diseases classified elsewhere, unspecified severity, without behavioral disturbance, psychotic disturbance, mood disturbance, and anxiety; E78.00 Pure hypercholesterolemia, unspecified; Z23 Encounter for immunization; W19.XXXA Unspecified fall, initial encounter; Y92.019 Unspecified place in single-family (private) house as the place of occurrence of the external cause
CPT/HCPCS: 70450; 70544; 70551; 71010; 72141; 80053; 80061; 82607; 82746; 82948; 83036; 84443; 85025; 85610; 85730; 86038; 86039; 86592; 90732; 93005; 93306; 93880; 97162; 97167; 97530; 99285; G0008; G0009; G0378; G8987; G8988; Q2038; 90471; 90686